=== PATIENT | male | born 1945 | race Caucasian/White ===

== ENCOUNTER 2017-05-14 01:44 | Inpatient (IN) ==
[2017-05-14 03:30] VITALS: BMI 34.1
[2017-05-14] MEDS ORDERED: ONDANSETRON 4 MG/2 ML INJECTION IVP PRN (04:00)
--- NOTE | 2017-05-14 04:07 | History & Physical Report ---
History of Present Illness Date: 05/14/17 Chief complaint: bright red blood per rectum HPI: 71 yo M with PMH of HTN presented to the ED with reports of bright red blood per rectum that started tonight at 22:00. Patient reports large voluminous bloody stools that came on urgently. The were painless and he denies abdominal cramping. He denies HX of blood stools in the past, he reports 3 episodes before he presented to the ED at [place], then he had one witnessed event in the ED. H/H was WNL. His last colonscopy was in 2015, it was normal at that time. Patient transferred to [facility] for further evaluation as [facility] did not have a surgeon or GI doctor this week. Review of Systems All systems PM: 10-point ROS was reviewed, no additional remarkable complaints except Past Medical History Patient Stated Medical History Cataracts Yes Dental Problems Yes: false teeth Glaucoma Yes Hypertension Yes Gastroesophageal Reflux Yes Disease Hx Kidney Stones Yes Osteoarthritis Yes Family History Updates: non contributory - Social History Smoking status: Former smoker Medications Home Medications Medication Instructions Recorded Confirmed Type Gabapentin 300 mg PO AM 05/14/17 05/14/17 History Gabapentin [Neurontin] 1 cap PO HS 05/14/17 05/14/17 History Allergies Allergy/AdvReac Type Severity Reaction Status Date / Time No Known Allergies Allergy Verified 05/14/17 03:10 Exam Vital Signs: Temperature 97.9 F 05/14/17 03:10 Pulse Rate 92 05/14/17 03:10 Respiratory Rate 16 05/14/17 03:10 Blood Pressure 154/85 H 05/14/17 03:10 Pulse Oximetry 95 05/14/17 03:10 Height/Weight/BMI: Height 1.78 m Weight 107.9 kg Body Mass Index 34.1 - Constitutional Present: well nourished, well developed - Routine Respiratory Exam Present: CTA bilaterally. Absent: wheezes - Routine Cardiovascular Exam Present: RRR. Absent: murmur - Routine Abdominal Exam Present: soft, normoactive bowel sounds, non distended. Absent: tenderness - Routine Extremities Exam Present: normal capillary refill - Routine Skin Exam Present: dry, warm - Routine Neurological Exam Present: alert, oriented X3, CN II-XII intact - Routine Psychiatric Exam Present: normal affect Assessment and Plan (1) GI bleed Current visit: Yes Status: Acute Assessment and Plan: Patient admitted. CBC, BMP ordered. Patient NPO until gen surg see in AM. Patient hemodynamically stable at this time. Protonix 40mg IV BID ordered. DVT Prophylaxis: SCD's GI Prophylaxis: Protonix Resuscitation Status: Full Code - Physician Narrative Narrative: Date: 05/14/17 Time: 402 Hospital Course Summary Disclaimer: The visit summary below is not to be considered part of the above Progress Note.
[2017-05-14] MEDS: PANTOPRAZOLE 40 MG INJECTION IVP SCH ×2 (04:43→21:07)
[2017-05-14] MEDS: LR 1,000 ML IV SCH ×2 (04:44→14:48)
--- NOTE | 2017-05-14 08:45 | General Surgery Consult Note ---
Consult date: 05/14/17 Attending Physician: Sanna Pino MD Reason for consult: other (redtal bleeding) [facility] Patient Stated Medical History Cataracts Glaucoma Hypertension GERD Kidney Stones BPH Hypothyroidism Arthritis Hypercholesterolemia Borderline DM Surgical History: -colonoscopy 04/05/2006 Tubular adenoma of rectum. - colonoscopy 03/11/2009 with hperplastic polyp. -colonoscopy 03/16/2015 with hyperplastic polyp and "very large numerous diverticula" Dr. Elizondo at [facility]. -EGD unknown date given ABX for 10 days and PPI. -Left knee scope meniscal tear repair Family History: Father - of emphysema, pneumonia Mother- age 61 Alzheimer's Brother age 53 "massive [place]" Denies F/H colon cancer - Social History Smoking status: Former smoker (quit 1989) Alcohol intake frequency: does not drink Housing: house Household members: other () Current occupational status: retired (from [employer]) Medications Home Medications Medication Instructions Recorded Confirmed Type Cinnamon Bark [Cinnamon] 1,000 mg PO DAILY 05/14/17 05/14/17 History Docusate Sodium 100 mg PO PRN 05/14/17 05/14/17 History Levothyroxine Sodium 150 mcg PO DAILY 05/14/17 05/14/17 History Lisinopril [Prinivil] 10 mg PO DAILY 05/14/17 05/14/17 History Loratadine 10 mg PO DAILY 05/14/17 05/14/17 History Meloxicam 15 mg PO DAILY 05/14/17 05/14/17 History Multi-Vitamin + Mineral 1 tab PO DAILY 05/14/17 05/14/17 History [Therapeutic - M] Keeler-3 Fatty Acids [Keeler-3] 1,200 mg PO DAILY 05/14/17 05/14/17 History Pantoprazole Sodium [Protonix] 40 mg PO DAILY 05/14/17 05/14/17 History Tramadol [Ultram] 50 mg PO PRN 05/14/17 History Allergies Allergy/AdvReac Type Severity Reaction Status Date / Time No Known Allergies Allergy Verified 05/14/17 03:10 Review of Systems 10-point ROS: negative except for HPI and the following: - Eyes/Ears/Nose/Throat Eyes: Present: vision problems (wears glasses) - Gastrointestinal Gastrointestinal: Present: blood in stools - Musculoskeletal Musculoskeletal: Present: joint pain - Neurological Neurological: Present: other (Feels like his skin "crawls" or "there are tiny little bugs biting". This sensation has not been present since admission to [facility] and is not pressent today.) - Endocrine Endocrine: Present: thyroid problems - Vital Signs Last Vital Signs Temp 97.9 F 05/14/17 08:14 Pulse 84 05/14/17 08:14 Resp 18 05/14/17 08:14 BP 134/83 05/14/17 08:14 Pulse Ox 92 05/14/17 08:14 - Laboratory Result Diagrams: 05/14/17 04:16 05/14/17 04:16 General Surgery Results - Results Labs: 05/14/17 04:16 05/14/17 04:16 Hospital Course Summary Disclaimer: The visit summary below is not to be considered part of the above Progress Note.
[2017-05-14] MEDS ORDERED: TETANUS, DIPHTHERIA, a PERTUSSIS (Tdap) 0.5ml INJECTION IM ONE (10:52)
[2017-05-14] MEDS ORDERED: Bisacodyl EC TAB 5 MG TABLET PO ONE (12:10)
[2017-05-14] MEDS ORDERED: Tdap VACCINE ADMINISTR CHARGE INJ ONE (14:00)
[2017-05-14] MEDS ORDERED: POLYETHYL. GLYCOL 3350 BOTTLE 238 GM PO ONE (14:30)
--- NOTE | 2017-05-14 16:03 | Consultation ---
DATE OF CONSULTATION 05/14/2017 FINDINGS Mr. Duran is a 71-year-old gentleman whom I was asked to see today as a new patient as a result of his history for rectal bleeding. Patient states that yesterday he was sitting around and watching some TV and had developed the urge to have a bowel movement. Patient states that he went to the bathroom and had passed a considerable amount of bright red blood per rectum. Patient states that he had two further episodes of rectal bleeding. He understandably became concerned and presented to [facility] emergency room for further evaluation. [facility] did not have a general surgeon or GI physician available and the patient was transferred to our facility for further care. The patient denies prior history for rectal bleeding. He says that he had a colonoscopy about two years ago that was normal with the exception of some diverticula. The patient denied prior history for peptic ulcer disease. He denied any history for significant nonsteroidal use. Denies alcohol use. Patient states that he has not drank alcohol since 1965. The patient did not have any element of abdominal pain in conjunction with his rectal bleeding. He was therefore without any type of specific aggravating or alleviating symptomatology. PAST MEDICAL HISTORY Performed by my nurse practitioner, Jose Luis Esparza. PAST SURGICAL HISTORY Performed by my nurse practitioner, Jose Luis Esparza. MEDICATIONS Performed by my nurse practitionerJose Luis. ALLERGIES Performed by my nurse practitionerJose Luis. SOCIAL HISTORY Performed by my nurse practitionerJose Luis. FAMILY HISTORY Performed by my nurse practitioner, Jose Luis Esparza. REVIEW OF SYSTEMS Performed by my nurse practitionerJose Luis. PHYSICAL EXAMINATION GENERAL: Mr. Duran is a 71-year-old gentleman who today did not appear to be in acute distress. VITALS: Temperature 97.9. Pulse 84. Respirations 18. Blood pressure 134/83. SaO2 92% on room air. HEENT: Normocephalic. Pupils are equally round and react to light and accommodation. NECK: Supple without lymphadenopathy. CHEST: Clear to auscultation bilaterally. HEART: Regular rate and rhythm. Normal S1, S2, without gallops, murmurs or clicks. ABDOMEN: Palpation of the abdomen reveals it to be soft and nontender. I do not appreciate any evidence for hepatosplenomegaly nor abnormal masses. EXTREMITIES: Without clubbing, cyanosis, or edema. NEURO: Cranial nerves II-XII grossly intact. Patient without focal, motor, or sensory deficits. LABORATORY/RADIOGRAPHIC EVALUATION The patient had a CBC today and his white count was normal at 5.7. Hemoglobin was slightly low at 12.8. CMP was obtained and found to be essentially within normal limits. Glucose was minimally elevated at 136. ASSESSMENT 71-year-old gentleman with onset of hematochezia. Most likely underlying etiology is that of a diverticular bleed. PLAN I did inform the patient that I felt that we had a few options available to us. I informed the patient that I have had a few patients over the last 20 years who have had a duodenal ulcer that bled briskly enough that they did present with bright red blood per rectum. I informed the patient that one could make an argument for going ahead and proceeding with both an EGD as well as a colonoscopy for further evaluation of his recent onset of rectal bleeding. I informed the patient that another option would be to treat him empirically as if he has peptic ulcer disease and keep him on medical therapy for suspected peptic ulcer disease over the course of the next month and given the fact that he had a normal colonoscopy two years ago, not proceed with endoscopic evaluation of his rectal bleeding. Pros and cons of these options were discussed with the patient. I also discussed the potential risks associated with endoscopy which included, but was not inclusive of, bleeding and/or perforation requiring surgery. After a moderate amount of discussion, the patient concluded that he would like to proceed with EGD and colonoscopy. We will proceed with bowel prep today in preparation for endoscopy tomorrow. I have reviewed orders and agree with current empiric treatment for suspected peptic ulcer disease. The patient is on Protonix 40 mg IV b.i.d. MTDD
[2017-05-14] MEDS: LEVOTHYROXINE 150 MCG TABLET PO SCH (16:42)
[2017-05-14] MEDS: LORATADINE 10 MG TABLET PO SCH (16:43)
[2017-05-14] MEDS: LISINOPRIL 10 MG TABLET PO SCH (16:43)
[2017-05-14] MEDS ORDERED: DEXTROMETHORPHAN 30 MG/5 ML ORAL LIQUID PO PRN (16:55)
[2017-05-15] MEDS: LR 1,000 ML IV SCH ×3 (01:52→22:47)
[2017-05-15] MEDS ORDERED: LIDOCAINE VISCOUS 2% ORAL LIQUID 15ml ONE (06:30)
[2017-05-15] MEDS: LEVOTHYROXINE 150 MCG TABLET PO SCH (06:45)
--- NOTE | 2017-05-15 07:41 | General Surgery Progress Note ---
Subjective Patient reports: blood in stool (Bowel prep was initially clear yellow per nurse , then turned bloody about 3am. He has had 2 additional smaller bloody stool since then. Denies nausea, dizziness, light headedness. ) Narrative: He had 50 ml water about 6:30 this morning. He is now in isolation for RSV. - Vital Signs Last Vital Signs Temp 97.7 F 05/15/17 03:19 Pulse 80 05/15/17 03:19 Resp 18 05/15/17 03:19 BP 141/90 H 05/15/17 03:19 Pulse Ox 94 05/15/17 03:19 - Laboratory Result Diagrams: 05/15/17 04:06 05/15/17 04:06 - Normal Exam General: awake, alert, oriented, no acute distress Respiratory: no labored breathing Psychiatric: normal affect Assessment and Plan (1) GI bleed Current Visit: Yes Status: Suspected Qualifiers: GI bleed type/associated pathology: diverticulosis Qualified Code(s): K57.91 - Diverticulosis of intestine, part unspecified, without perforation or abscess with bleeding Plan: Will keep him NPO and plan EGD colonoscopy late morning today. Anesthesia (Carlos Mckoy) indicated Lisinopril should be held. Hospital Course Summary Disclaimer: The visit summary below is not to be considered part of the above Progress Note.
[2017-05-15] MEDS: PANTOPRAZOLE 40 MG INJECTION IVP SCH ×2 (08:11→20:14)
--- NOTE | 2017-05-15 08:42 | Progress Note ---
- Date 05/15/17 Subjective: Pt was seen by me at 8:30 am in his room. He reports he had several stools with BRB related to his bowel prep during the night. He does not recall seeing any clots associated with the blood. He is scheduled for his colonoscopy/EGD this am. He denies any lightheadedness, SOB or chest pain. He reports his cough is the same-he did not realize he had cough medicine he could request. His sore throat is better. He remains afebrile. Objective Vital signs: Temperature 97.7 F 05/15/17 03:19 Pulse Rate 80 05/15/17 03:19 Respiratory Rate 18 05/15/17 03:19 Blood Pressure 141/90 H 05/15/17 03:19 Pulse Oximetry 94 05/15/17 03:19 In general, the patient is alert and oriented 3, cooperative with exam, and in no respiratory distress. HEENT: Head is atraumatic, normocephalic, no conjunctival petechiae, no oral thrush, mucous membranes are moist and pink. Lungs: Clear to auscultation without wheezes, crackles or rhonchi CV: Regular rate and rhythm without murmur Abdomen: Soft, nontender, bowel sounds are present, there is no guarding no rebound, slightly tender in left midquadrant with palpation Extremities: No clubbing, no cyanosis, no edema. Skin: Warm and dry no sign of rash Neuro: Patient is alert Height/Weight/BMI: Height 5 ft 10 in Weight 237 lb 14.06 oz Body Mass Index 34.1 Results - Labs CBC & Chem 7: 05/15/17 04:06 05/15/17 04:06 Labs: Laboratory Tests 05/14/17 12:22 Entero/Rhino (PCR) Detected A* Assessment and Plan (1) GI bleed Current visit: Yes Status: Suspected Assessment and Plan: Acute GI bleed with continued blood loss- hemoglobin stable History of polyps and diverticuli URI secondary to rhinovirus/enterovirus Hypertension Hypokalemia- resolved Plan Colonoscopy and EGD scheduled for today Monitor hemoglobin Continue protonix for now Lisinopril on hold secondary to anesthesia request Monitor BP Cough syrup available for cough secondary to rhinovirus/enterovirus DVT Prophylaxis: SCD's GI Prophylaxis: Protonix Resuscitation Status: Full Code - Physician Narrative Narrative: Date: 05/15/17 Time: 0838 Hospital Course Summary Disclaimer: The visit summary below is not to be considered part of the above Progress Note. 05/15/17 Acute GI bleed with continued blood loss- hemoglobin stable History of polyps and diverticuli URI secondary to rhinovirus/enterovirus Hypertension Hypokalemia- resolved Plan Colonoscopy and EGD scheduled for today Monitor hemoglobin Continue protonix for now Lisinopril on hold secondary to anesthesia request Monitor BP Cough syrup available for cough secondary to rhinovirus/enterovirus
--- NOTE | 2017-05-15 09:28 | Anesthesia Postoperative Note ---
- Date and Time Date: 05/15/17 Time: 09:28 - Status Patient Participated in Evaluation: Patient Participated in Person Vital Signs: Temperature 97.2 F 05/15/17 08:57 Pulse Rate 83 05/15/17 08:57 Respiratory Rate 16 05/15/17 08:57 Blood Pressure 137/83 05/15/17 08:57 Pulse Oximetry 92 05/15/17 08:57 Respiratory Function: Airway Patent Cardiovascular Function: Regular Pulse EKG: Sinus Rhythm EKG Ectopy: Bundle Branch Block Mental Status: Alert and Oriented Pain Intensity: 0 Hydration: IV Infusing Complications During Recover: None Apparent - Follow-Up Instructions Instructions: Per Surgeon
[2017-05-15] MEDS: LORATADINE 10 MG TABLET PO SCH (09:51)
[2017-05-15] MEDS: MULTI-VITAMIN + MINERAL TABLET PO SCH (09:51)
--- NOTE | 2017-05-15 09:51 | Anesthesia Preoperative Report ---
Anesthesia Preoperative Record - Date and Time Date: 05/15/17 Preoperative Diagnosis: GI bleed Proposed Procedure: colonoscopy/egd NPO Since Date: 05/15/17 NPO Since Time: 06:00 (h20 sips no solids since mn) Allergies/Adverse Reactions: Allergies Allergy/AdvReac Type Severity Reaction Status Date / Time No Known Allergies Allergy Verified 05/14/17 03:10 - Vital Signs Vital Signs: Temperature 97.2 F 05/15/17 08:57 Pulse Rate 83 05/15/17 08:57 Respiratory Rate 16 05/15/17 08:57 Blood Pressure 137/83 05/15/17 08:57 Pulse Oximetry 92 05/15/17 08:57 Height and Weight: Height 1.78 m Weight 103.5 kg Body Mass Index 34.1 - Medications Inpatient Medications: Current Medications Dextromethorphan Polistirix (Delsym Ext-Release) 60 mg PO Q12H PRN PRN Reason: Cough Lactated Ringer's (Lactated Ringers) 1,000 mls @ 100 mls/hr IV .Q10H [facility] Last Admin: 05/15/17 01:52 Dose: 100 mls/hr Levothyroxine Sodium (Synthroid) 150 mcg PO ACB [facility] Last Admin: 05/15/17 06:45 Dose: Not Given Lisinopril (Prinivil) 10 mg PO DAILY [facility] Last Admin: 05/14/17 16:43 Dose: 10 mg Loratadine (Claritin) 10 mg PO DAILY [facility] Last Admin: 05/14/17 16:43 Dose: 10 mg Multivitamins/Minerals (Therapeutic - M) 1 tab PO DAILY [facility] Ondansetron HCl (Zofran) 4 mg IVP Q6H PRN PRN Reason: Nausea &/or vomiting Pantoprazole Sodium (Protonix Iv) 40 mg IVP BID [facility] Last Admin: 05/15/17 08:11 Dose: 40 mg Home Medications: Home Medications Medication Instructions Recorded Confirmed Type Cinnamon Bark [Cinnamon] 1,000 mg PO DAILY 05/14/17 05/14/17 History Docusate Sodium 100 mg PO PRN 05/14/17 05/14/17 History Levothyroxine Sodium 150 mcg PO DAILY 05/14/17 05/14/17 History Lisinopril [Prinivil] 10 mg PO DAILY 05/14/17 05/14/17 History Loratadine 10 mg PO DAILY 05/14/17 05/14/17 History Meloxicam 15 mg PO DAILY 05/14/17 05/14/17 History Multi-Vitamin + Mineral 1 tab PO DAILY 05/14/17 05/14/17 History [Therapeutic - M] Dinosaur-3 Fatty Acids [Dinosaur-3] 1,200 mg PO DAILY 05/14/17 05/14/17 History Pantoprazole Sodium [Protonix] 40 mg PO DAILY 05/14/17 05/14/17 History Tramadol [Ultram] 50 mg PO PRN 05/14/17 History - Medical History Cardiovascular: Reports: Hypertension, High Cholesterol Gastrointestional: Reports: Gastroesophageal Reflux Disease Renal/Endocrine: Reports: Thyroid Disease - Surgical History GI Surgery/Treatments: Reports: Colonoscopy, EGD Anesthesia Reactions: None Hx Family Anesthesia Reaction: No History of Motion Sickness: No - Social History Smoking Status: Former smoker (quit 1989) Alcohol Intake Frequency: does not drink - Pertinent Findings Laboratory: CBC and BMP 05/15/17 04:06 05/15/17 04:06 BMP 05/15/17 04:06 Sodium 144 Potassium 3.8 Chloride 105 Carbon Dioxide 28 BUN 11.0 Creatinine 0.7 L Glucose 148 H Calcium 9.4 EKG: Sinus Rhythm - Physical Exam Respiratory Exam: Present: lungs clear, bilateral breath sounds equal Cardiovascular Exam: Present: regular rate and rhythm, no murmur - Airway Assessment Mallampati Score: I TMD: 3 Fingerbreadths Neck Extension: good Teeth: upper dentures, lower dentures Overall Assessment: no airway concerns - ASA ASA Score: 3 - Plan Anesthesia: General TIVA - Discussion Discussion: Discussed risks/options/alternatives of anesthesia and questions answered. Patient consents. Nursing pain assessment noted. Attestation Statement: Prior to the delivery of any anesthetic medication, I examined the patient, developed the plan, obtained the patient's consent and discussed the risk and benefits of the procedure with the patient/guardian. - Additional Information Seen by Anesthesia: Yes
[2017-05-15] MEDS ORDERED: PROPOFOL 500 MG/50 ML VIAL ONE (11:16)
[2017-05-15] MEDS ORDERED: PROPOFOL 20 ML ONE (11:47)
--- NOTE | 2017-05-15 11:58 | Procedure Note ---
- Procedure Date/Time: Date: 05/15/17 Time: 1156 Surgeon: Maya ASA Score: 3 Proceure: Colonoscopy-forceps polypectomy, EGD-polypectomy w/forceps - Postoperative Colonoscopy Diagnosis Diverticulosis (with bleeding) Polyps at (cm): 25 cm - Postoperative EGD Diagnosis Postoperative EGD Diagnosis: Hiatal hernia, Other (gastric polyp, Esophageal varices) - Complications Complications: None Estimated Blood Loss: See Anesthesia Record. Vital Signs: See Anesthesia and PACU record.
--- NOTE | 2017-05-15 12:19 | Anesthesia Postoperative Note ---
- Date and Time Date: 05/15/17 Time: 12:17 - Status Patient Participated in Evaluation: Patient Participated in Person Vital Signs: Temperature 97.2 F 05/15/17 08:57 Pulse Rate 88 05/15/17 11:55 Respiratory Rate 11 05/15/17 11:55 Blood Pressure 76/44 05/15/17 11:55 Pulse Oximetry 95 05/15/17 11:55 Respiratory Function: Airway Patent, Regular Respirations Cardiovascular Function: Regular Pulse Mental Status: Alert and Oriented Pain Intensity: 0 Hydration: IV Infusing Complications During Recover: None Apparent - Follow-Up Instructions Instructions: Per Surgeon
--- NOTE | 2017-05-15 16:05 | Operative Note ---
DATE OF SERVICE 05/15/2017 SURGEON Sai Trejo MD PREOPERATIVE DIAGNOSIS Rectal bleeding. POSTOPERATIVE DIAGNOSIS Rectal bleeding, minimal/moderate esophageal varices, hiatal hernia, gastric polyp, colonic polyp at 25 cm from the anal verge, sigmoid diverticulosis, probable diverticular bleed. PROCEDURE Esophagogastroduodenoscopy with gastric polypectomy via cold biopsy technique, colonoscopy with snare polypectomy technique at 25 cm from the anal verge. ANESTHESIA TIVA BRIEF HISTORY/INDICATIONS Mr. Duran is a 71-year-old gentleman who presented to our facility recently as a result of his history for rectal bleeding. It was recommended that the patient undergo bidirectional endoscopy for further evaluation. For completeness please refer to notes included in the patient's chart. FINDINGS Upon upper endoscopy, the patient was found to have fairly prominent submucosal venous structures indicative of a component of esophageal varices. There was no evidence for recent bleeding or ulceration of the varices. The patient was found to have a 6-7 cm hiatal hernia. Additionally the patient was found to have a polyp-like structure within the antrum of the stomach that was on the order of about 6 mm in diameter and removed in its entirety via cold biopsy technique. Duodenum without noted abnormalities. No evidence for old blood was present involving the upper intestinal tract. Upon colonoscopy, the patient was found to have a 8 mm polyp at 20 cm from the anal verge that was removed in its entirety via snare polypectomy technique. The patient was found to have a considerable amount of clotted blood within the sigmoid colon region adjacent to multiple diverticula. A specific bleeding diverticulum, however, was unable to be identified. There was no evidence for angiodysplastic lesions or justice malignancies. DESCRIPTION OF PROCEDURE After informed consent was obtained, patient was brought to the endoscopy suite and placed on the table in left lateral decubitus position. The patient subsequently underwent total intravenous anesthesia by the nurse intermediate manager per my request. Formal time-out was then completed. Next an Olympus gastroscope was inserted in the oral hypopharynx and subsequently the esophagus under direct visualization. Gastroscope was advanced through the esophagus, stomach, pylorus, duodenal bulb, to the second portion of the duodenum. First and second portions of the duodenum were within normal limits. No evidence of duodenitis or ulcerations were noted. Scope was withdrawn back to the prepyloric region. Within the prepyloric region/antrum, the patient was found to have a polyp-like structure that was on the order of about 5-6 mm in diameter. This polyp was grasped and removed in its entirety via cold biopsy technique. A J-maneuver was then performed. Cardia and fundus were within normal limits with the exception the patient was found to have a moderate-sized hiatal hernia. Scope was allowed to straighten and slowly withdrawn. The remaining corpus of the stomach was well visualized and again without noted abnormalities. Scope was withdrawn back to the level of the squamocolumnar junction which was about 6 cm above the level of the diaphragm. Squamocolumnar junction was well demarcated with no endoscopic evidence for Lees's metaplasia or distal esophagus, distal esophagitis. Scope was then slowly withdrawn. One could see fairly prominent submucosal venous structures present. Several photos were obtained for documentation purposes. Scope was then continued to be slowly withdrawn and no additional mucosal abnormalities were noted within the esophagus. Scope was removed from the patient's oral hypopharynx. Next attention was directed towards performing colonoscopy. First a digital rectal examination was performed. Normal sphincter tone. No rectal masses were appreciated. An Olympus colonoscope was inserted into the anus/rectal vault. One could see some old blood within the rectum. Scope was then advanced up to about 25 cm from the anal verge where an 8 mm polyp was identified. Snare was placed around the polyp and the polyp was transected and suctioned into a colonic trap to be submitted for pathologic evaluation. Scope was then continued be advanced. There was a fair amount of old clot present within the sigmoid colon region. Numerous diverticula were noted as well. An active bleeding diverticulum, however, was not able to be identified. Colonoscope was then continued to be advanced until the cecum was ascertained. Triangulation of the teniae coli, ileocecal valve and appendiceal lumen were all visualized. Scope was then slowly withdrawn again maintaining visualization of the lumen at all times. No additional/synchronous colonic polyps were noted. No angiodysplastic lesions were noted as well. Colonoscope was continued to be withdrawn until it was brought forth back to the rectal vault. A J-maneuver was then performed. No worrisome perianal pathology was noted. Scope was allowed to straighten and withdrawn through the anal verge. The patient tolerated the procedure without difficulty and was sent back to the preop area in stable condition. It is my intuition that the patient's recent rectal bleeding was diverticular in its etiology. We will await the pathology report from this polypectomy and proceed accordingly with further recommendations thereafter. Will go ahead and type and screen patient and continue to follow patient from a clinical standpoint in regards to his diverticular bleeding. We may wish to proceed with CT scan for further evaluation of his minimal esophageal varices noted to see if there is radiographic evidence for portal hypertension/cirrhosis. ALEXIA
[2017-05-16] MEDS ORDERED: IOHEXOL 300mg/ml 100ml INJECTION ONE (00:45)
[2017-05-16] MEDS ORDERED: SALINE FLUSH 10ml SYRINGE ONE (00:45)
[2017-05-16] MEDS: LEVOTHYROXINE 150 MCG TABLET PO SCH (05:47)
--- NOTE | 2017-05-16 08:48 | Progress Note ---
- Date 05/16/17 Subjective: The patient was seen at 8:35 AM sitting up in bed. He is eating a clear liquid breakfast. He is scheduled for CT scan of the abdomen and pelvis. He continues to be passing blood with his stools. This morning it appears to be more dark blood with very little stool. He denies any lightheadedness, he overall feels pretty good. He has minimal cough. He has not required any cough medicine. Objective Vital signs: Temperature 98.0 F 05/16/17 07:07 Pulse Rate 85 05/16/17 07:07 Respiratory Rate 16 05/16/17 07:07 Blood Pressure 130/78 05/16/17 07:07 Pulse Oximetry 94 05/16/17 07:07 In general, the patient is alert and oriented 3, cooperative with exam, and in no respiratory distress. HEENT: Head is atraumatic, normocephalic mucous membranes are moist and pink. Lungs: Clear to auscultation without wheezes, crackles or rhonchi CV: Regular rate and rhythm without murmur Abdomen: Soft, nontender, bowel sounds are present Extremities: No clubbing, no cyanosis, no edema. Skin: Warm and dry no sign of rash Neuro: Patient is alert Height/Weight/BMI: Height 5 ft 10 in Weight 229 lb 4.492 oz Body Mass Index 34.1 Results - Labs CBC & Chem 7: 05/16/17 04:19 05/16/17 04:19 Labs: Laboratory Tests 05/14/17 05/15/17 05/16/17 04:16 04:06 04:19 Eos % (Auto) 5.5 H 5.6 H 4.9 H Eos # (Auto) 0.3 0.3 0.3 Assessment and Plan (1) GI bleed Current visit: Yes Status: Suspected Assessment and Plan: Acute GI bleed secondary to diverticulosis with continued blood loss- hemoglobin slowly drifting downward S/p colonoscopy/ EGD with polypectomy Hiatal hernia Gastric polyp Esophageal varices (quit drinking in 1965) URI secondary to rhinovirus/enterovirus Hypertension Hypokalemia- resolved Mild increase percentage of eos, absolute number wnl Plan CT of abd/pelvis pending to evaluate etiology of esophageal varices Monitor hemoglobin Continue protonix will change to po Await pathology on polyps Cough syrup available for cough secondary to rhinovirus/enterovirus Will d/c IV fluids after this bag - Physician Narrative Narrative: Date: 05/16/17 Time: 0845 Hospital Course Summary Disclaimer: The visit summary below is not to be considered part of the above Progress Note. Hospital Course: Acute GI bleed with continued blood loss- hemoglobin stable History of polyps and diverticuli URI secondary to rhinovirus/enterovirus Hypertension Hypokalemia- resolved 05/15/17 Plan Colonoscopy and EGD scheduled for today Monitor hemoglobin Continue protonix for now Lisinopril on hold secondary to anesthesia request Monitor BP Cough syrup available for cough secondary to rhinovirus/enterovirus 05/16/17 Acute GI bleed secondary to diverticulosis with continued blood loss- hemoglobin slowly drifting downward S/p colonoscopy/ EGD with polypectomy Hiatal hernia Gastric polyp Esophageal varices (quit drinking in 1965) URI secondary to rhinovirus/enterovirus Hypertension Hypokalemia- resolved Mild increase percentage of eos, absolute number wnl Plan CT of abd/pelvis pending to evaluate etiology of esophageal varices Monitor hemoglobin Continue protonix will change to po Await pathology on polyps Cough syrup available for cough secondary to rhinovirus/enterovirus Will d/c IV fluids after this bag
[2017-05-16] MEDS: LISINOPRIL 10 MG TABLET PO SCH (08:51)
[2017-05-16] MEDS: MULTI-VITAMIN + MINERAL TABLET PO SCH (08:51)
[2017-05-16] MEDS: PANTOPRAZOLE 40 MG INJECTION IVP SCH (08:51)
[2017-05-16] MEDS: LORATADINE 10 MG TABLET PO SCH (08:51)
[2017-05-16] MEDS: PANTOPRAZOLE 40 MG TABLET PO SCH ×2 (09:14→16:33)
[2017-05-16] MEDS: LR 1,000 ML IV SCH (09:20)
--- NOTE | 2017-05-16 10:48 | CT Scan Report ---
Indication: evaluate for possible cirrhosis, portal HTN, PROCEDURE: CT abdomen pelvis w con: Encounter: Initial Comparison: None Technique: Axial CT images were performed through the abdomen and pelvis after the administration of intravenous contrast. Coronal and sagittal two-dimensional reformats. Automated Exposure Control and Iterative Reconstruction dose reducing techniques were utilized. Contrast: Omnipaque 300 100 mL Findings: 3 mm right lower lobe nodule on axial image #6. Linear scarring or atelectasis in the left lower lobe and lingula. The liver is fatty infiltrated diffusely. There is a slightly nodular contour externally. No enhancing liver lesion or mass. No bile duct dilatation. The gallbladder is normal. The spleen is normal. The pancreas is normal. The adrenal glands and kidneys are normal. Moderate sized hiatal hernia. Mildly enlarged left retroperitoneal node adjacent to the aorta on axial image #39 measuring 1.2 cm in short axis. Bladder is thin walled. Prostate is enlarged at up to 6 cm in diameter impressing upon the bladder base. Prominent stone at the right ureterovesicular junction on axial image #82 measuring 6 mm in size. There is an additional large 1.7 cm stone region at the left ureterovesicular junction that could be within the distal ureter. Additional pelvic phleboliths are noted. No free fluid. Moderate to severe sigmoid diverticulosis without evidence of acute diverticulitis. Scattered left colonic diverticulosis as well. No evidence of a bowel obstruction. The appendix is normal. Bone windows show transitional anatomy with partial sacralization of the L5 vertebra on the left with degenerative change and scoliosis in the lumbar spine. Impression: 1. Hepatic steatosis and possible cirrhosis. No other CT findings to suggest portal hypertension however. 2. Large stones at the ureterovesicular junctions bilaterally do not appear to be causing any obstruction. Recommend urologic evaluation. 3. Enlarged prostate with borderline retroperitoneal adenopathy raising some concern for prostate cancer. Recommend correlation with physical exam and PSA testing as indicated. .
--- NOTE | 2017-05-16 11:22 | General Surgery Progress Note ---
Subjective Patient reports: tolerating liquids well (fulls), blood in stool (small bloody stool this morning, denies dizziness, light headedness) - Vital Signs Last Vital Signs Temp 98.0 F 05/16/17 07:07 Pulse 85 05/16/17 07:07 Resp 16 05/16/17 07:07 BP 130/78 05/16/17 07:07 Pulse Ox 94 05/16/17 07:07 - Laboratory Result Diagrams: 05/16/17 04:19 05/16/17 04:19 Laboratory Tests 05/14/17 05/14/17 05/15/17 04:16 10:48 04:06 Hgb 13.3 L 12.8 L 13.0 L 05/15/17 05/16/17 15:56 04:19 Hgb 12.1 L 11.6 L - Radiology CT Abd/Pelvis Impression: 1. Hepatic steatosis and possible cirrhosis. No other CT findings to suggest portal hypertension however. 2. Large stones at the ureterovesicular junctions bilaterally do not appear to be causing any obstruction. Recommend urologic evaluation. 3. Enlarged prostate with borderline retroperitoneal adenopathy raising some concern for prostate cancer. Recommend correlation with physical exam and PSA testing as indicated. - Normal Exam General: awake, alert, oriented Cardiovascular: regular rate Respiratory: no labored breathing Abdominal: soft Assessment and Plan (1) GI bleed Current Visit: Yes Status: Acute Qualifiers: GI bleed type/associated pathology: diverticulosis Qualified Code(s): K57.91 - Diverticulosis of intestine, part unspecified, without perforation or abscess with bleeding Plan: HGB has drifted down from 13.0 on admission to 11.6 today, not much of a drop for the volume of stool with blood in it, must have been mostly stool. Copy of CT report given to patient to give to his PCP and urologist. He had a urology apt this week, this has been pushed back a week. Will advance to regular diet for lunch and see how he does. Hospital Course Summary Disclaimer: The visit summary below is not to be considered part of the above Progress Note. Hospital Course: Acute GI bleed with continued blood loss- hemoglobin stable History of polyps and diverticuli URI secondary to rhinovirus/enterovirus Hypertension Hypokalemia- resolved 05/15/17 Plan Colonoscopy and EGD scheduled for today Monitor hemoglobin Continue protonix for now Lisinopril on hold secondary to anesthesia request Monitor BP Cough syrup available for cough secondary to rhinovirus/enterovirus 05/16/17 Acute GI bleed secondary to diverticulosis with continued blood loss- hemoglobin slowly drifting downward S/p colonoscopy/ EGD with polypectomy Hiatal hernia Gastric polyp Esophageal varices (quit drinking in 1965) URI secondary to rhinovirus/enterovirus Hypertension Hypokalemia- resolved Mild increase percentage of eos, absolute number wnl Plan CT of abd/pelvis pending to evaluate etiology of esophageal varices Monitor hemoglobin Continue protonix will change to po Await pathology on polyps Cough syrup available for cough secondary to rhinovirus/enterovirus Will d/c IV fluids after this bag
--- NOTE | 2017-05-16 12:40 | Progress Note ---
DATE 05/15/2017 FINDINGS Mr. Duran was seen this evening on rounds. He denied abdominal pain. He has had no further rectal bleeding. VITALS: Afebrile. Normotensive. Last recorded vitals: temperature 96.5, pulse 73, blood pressure 137/89, SaO2 93% on room air. CHEST: Clear to auscultation bilaterally. HEART: Regular rate and rhythm. Normal S1 and S2 without gallops, murmurs or clicks. ABDOMEN: Palpation of the abdomen reveals it to be soft and nontender. I do not appreciate any evidence for hepatosplenomegaly or abnormal masses. LABORATORY/RADIOGRAPH EVALUATION The patient had a CBC this afternoon and his hemoglobin is stable at 12.1. Earlier today his hemoglobin was 13.0. ASSESSMENT 71-year-old gentleman with presentation of rectal bleeding. Patient status post EGD and colonoscopy. EGD did reveal evidence for esophageal varices/ prominent submucosal venous structures. Findings suggestive of portal hypertension. Colonoscopy revealed probable diverticular bleed with a fair amount of old blood noted adjacent to numerous diverticula within the sigmoid colon region. Colonic polyp as well as gastric polyp noted and removed in their entirety endoscopically. PLAN Will go ahead and order a CT scan of abdomen and pelvis for further evaluation of his mild esophageal varices to further evaluate for possibility of portal hypertension or cirrhosis of liver. Will advance to full liquids. Will recheck hemoglobin tomorrow. I did spend some time this evening discussing endoscopic findings with the patient and proposed plan. I informed the patient that hopefully his diverticular bleed will resolve on its own behalf over the next 24 hours and he will be able to be discharged in the near future. All questions answered. [facility]
--- NOTE | 2017-05-16 18:40 | Progress Note ---
DATE OF SERVICE 05/16/2017 FINDINGS Mr. Duran was seen this evening on rounds. He states that he did have one stool today that was black in nature. He has not passed any further bright red blood per rectum. Denies abdominal pain. He has just begun to eat a regular diet. PHYSICAL EXAM VITAL SIGNS: Afebrile, normotensive. Please refer to EMR. Last recorded vitals include temperature 97.9, pulse 82, respirations 18, blood pressure 143/79, SAO2 92% on room air. HEENT: Normocephalic. Pupils are equally round and react to light and accommodation. CHEST: Clear to auscultation bilaterally. HEART: Regular rate and rhythm. Normal S1 and S2 without gallops, murmurs or clicks. ABDOMEN: Palpation of the abdomen reveals it to be soft with no tenderness. No evidence for guarding or rebound. LABORATORY/RADIOGRAPHIC EVALUATION The patient had a CBC today and his hemoglobin overall is stable at 11.6. It has decreased slightly from 12.1. White count stable at 6.1. BMP obtained and found be without marked abnormalities. The patient did have a CT scan of his abdomen and pelvis as a result of the prominence of the submucosal venous structures. CT scan did reveal an enlarged prostate with some associated adenopathy worrisome for possible prostate cancer. Patient has an appointment with Urology in the near future. PSA level was recommended. He also had a large stones noted within ureterovesicular junction bilaterally. These do not appear to be causing an element of obstruction. There was a component of hepatic steatosis, possible cirrhosis. No evidence, however, to suggest portal hypertension. The patient was informed of the CT scan findings. ASSESSMENT 71-year-old gentleman with a history for hematochezia, most likely diverticular in nature. Patient overall doing well. PLAN Will likely keep overnight tonight and recheck hemoglobin tomorrow. If hemoglobin remains stable and he has had no further rectal bleeding, will discharge at that time. I have not spoken with the hospitalist system today in regards to final plans. The patient's colonic polyp that was removed endoscopically yesterday returned as hyperplastic in nature. The polyp-like structure from within the stomach returned revealing a component of chronic gastritis with reactive mucosal atypia. No evidence for malignancy and/or dysplasia present. [facility]
[2017-05-16 20:02] VITALS: RESP 16
[2017-05-17] MEDS: LEVOTHYROXINE 150 MCG TABLET PO SCH (06:30)
[2017-05-17] MEDS: PANTOPRAZOLE 40 MG TABLET PO SCH (06:30)
[2017-05-17 08:03] VITALS: BP 125/73; PULSE 79; TEMP 97.2; O2SAT 92
[2017-05-17] MEDS: MULTI-VITAMIN + MINERAL TABLET PO SCH (08:47)
[2017-05-17] MEDS: LISINOPRIL 10 MG TABLET PO SCH (08:47)
[2017-05-17] MEDS: LORATADINE 10 MG TABLET PO SCH (08:47)
--- NOTE | 2017-05-17 10:44 | Discharge Summary ---
Discharge Information Date of admission: 05/15/17 13:56 Anticipated date of discharge: 05/17/17 Attending Physician: Sanna Pino MD Primary care physician: Dr Nazario Foss- [facility] Consults: Dr Sai Trejo- General surgeon - Discharge Diagnosis (1) GI bleed Status: Acute Acute GI bleed secondary to diverticulosis Anemia secondary to GI blood loss S/p colonoscopy/ EGD with polypectomy Hypokalemia-(POA) Hiatal hernia Gastric polyp Esophageal varices (quit drinking in 1965) URI secondary to rhinovirus/enterovirus Hypertension Renal calculi - Procedures Procedures: 05/15/17- Esophagogastroduodenoscopy with gastric polypectomy via cold biopsy technique, colonoscopy with snare polypectomy technique at 25 cm from the anal verge. Dr Trejo - Laboratory Labs: 05/17/17 04:14 05/16/17 04:19 - Microbiology None - Radiology Radiology: 05/16/17- Ct Abdomen and pelvis Impression: 1. Hepatic steatosis and possible cirrhosis. No other CT findings to suggest portal hypertension however. 2. Large stones at the ureterovesicular junctions bilaterally do not appear to be causing any obstruction. Recommend urologic evaluation. 3. Enlarged prostate with borderline retroperitoneal adenopathy raising some concern for prostate cancer. Recommend correlation with physical exam and PSA testing as indicated. - Pathology Pending History of Present Illness HPI: 71 yo M with PMH of HTN presented to the ED with reports of bright red blood per rectum that started tonight at 22:00. Patient reports large voluminous bloody stools that came on urgently. The were painless and he denies abdominal cramping. He denies HX of blood stools in the past, he reports 3 episodes before he presented to the ED at [place], then he had one witnessed event in the ED. H/H was WNL. His last colonscopy was in 2016, it was normal at that time. Patient transferred to [place] for further evaluation as [facility] did not have a surgeon or GI doctor this week. Objective Vital signs: Temperature 97.2 F 05/17/17 08:00 Pulse Rate 79 05/17/17 08:00 Respiratory Rate 16 05/17/17 08:00 Blood Pressure 125/73 05/17/17 08:00 Pulse Oximetry 92 05/17/17 08:00 Height/Weight/BMI: Height 1.78 m Weight 104.8 kg Body Mass Index 34.1 - Constitutional Present: no acute distress, well nourished, well developed - Routine HEENT Exam Eye: Present: EOMI ENT: Present: mucous membranes moist, dentition normal - Routine Respiratory Exam Present: CTA bilaterally. Absent: wheezes - Routine Cardiovascular Exam Present: RRR, S1, S2. Absent: murmur - Routine Abdominal Exam Present: soft, normoactive bowel sounds, non distended. Absent: tenderness - Routine Extremities Exam Present: full ROM, pulses intact - Routine Back/Spine/Pelvis Exam Back/Spine: Present: full ROM - Routine Skin Exam Present: intact, dry, warm - Routine Neurological Exam Present: alert, oriented X3, CN II-XII intact, moving all extremities - Routine Lymphatic Exam Lymphatic: Absent: adenopathy - Routine Psychiatric Exam Present: normal affect, cooperative Hospital Course This is a general summary of the patient's hospital course. For more details refer to the complete medical record. Hospital course: Acute GI bleed with continued blood loss- hemoglobin stable History of polyps and diverticuli URI secondary to rhinovirus/enterovirus Hypertension Hypokalemia- resolved 05/15/17 Plan Colonoscopy and EGD scheduled for today Monitor hemoglobin Continue protonix for now Lisinopril on hold secondary to anesthesia request Monitor BP Cough syrup available for cough secondary to rhinovirus/enterovirus 05/16/17 CT of abd/pelvis pending to evaluate etiology of esophageal varices Monitor hemoglobin Continue protonix will change to po Await pathology on polyps Cough syrup available for cough secondary to rhinovirus/enterovirus Will d/c IV fluids after this bag 05/17/17- Discharge Joaquin is seen and examined prior to discharge. He is up in the room and ambulating without difficulty. He has tolerated a full breakfast this morning without any abdominal pain, nausea or stools. He had one stool that was dark in color. Yesterday, however, has had nothing overnight. He feels stable and ready for discharge. We will send him on Protonix 40 BID for ongoing GI protection. It is recommended that he avoid his Mobic and other NSAIDS at this time. He is instructed to follow-up with his primary care provider Dr Nazario Foss in [place], [place] in 1 week and have a CBC to monitor anemia. He also discussed findings of multiple renal calculi on CT scan. Patient doesn' t have an appointment already to follow-up with urologist. It is recommended that he also discuss PSA level. Given findings of enlarged prostate. Otherwise Joaquin appears to be medically stable for discharge. Time spent with patient: discharge greater than 30 minutes Discharge Plan - Discharge Disposition Discharge Date: 05/14/17 Disposition: Discharged Home, Self-Care *Condition: Stable Reason For Visit (Visit label in EMR): GI bleed - Discharge Medications *Discharge Medications: New Pantoprazole Tab [Protonix Tab] 40 mg PO ACBID #30 tab Continue Tramadol [Ultram] 50 mg PO PRN PRN Reason: Pain Loratadine 10 mg PO DAILY Levothyroxine Sodium 150 mcg PO DAILY Lisinopril [Prinivil] 10 mg PO DAILY Meloxicam 15 mg PO DAILY [place]-3 Fatty Acids [[place]-3] 1,200 mg PO DAILY Multi-Vitamin + Mineral [Therapeutic - M] 1 tab PO DAILY Discontinued Cinnamon Bark [Cinnamon] 1,000 mg PO DAILY Pantoprazole Sodium [Protonix] 40 mg PO DAILY Docusate Sodium 100 mg PO PRN - Discharge Packet/Instructions *Diet: regular *Activity: Do not drive, operate machinery for 24 hours after surgery or while taking pain medication. *Pain Management/Treatment: Follow prescriptions as prescribed *Wound Care: None Additional Instructions: Take Protonix twice a day until follow up with PCP. No Meloxicam or other NSAIDS until seen by PCP. Follow up with PCP Dr Nazario Foss in 1 week. Will need lab- CBC at that time. Follow up with Urologist as recommended. Take radiology reports to discuss kidney stones and PSA is recommended given enlarged prostate. *Expected Signs/Symptoms: Continued improvement in symptoms *Notify Physician if: 1. Call your surgeon if you are having problems relating to your surgery at [phone]. 2. Problems such as: Temp above 101.5 degrees. You develop redness, excessive swelling of the incision, increasing pain or excessive foul smelling drainage. 3. If the office is closed, call [facility] at [phone] and have your Surgeon paged. *During Business Hours Contact: Call your surgeon at at [phone]. *After Business Hours Contact: If the office is closed, call [facility] at [phone] and have your Surgeon paged. *Pending Lab/Results: Follow up w/your PCP - Referrals/Follow Up *Referrals/Follow Up: Nazario Foss MD [Physician] - 05/24/17 10:00 am (will do CBC lab work at that time and will see Olga the nurse practitioner ) - Patient Handouts Patient Handouts: Diverticulitis (DC), Rectal Bleeding (DC), Colorectal Polyps (DC) - Dismissal Complete Discharge Instructions are:: Complete Physician Narrative - Narrative Physician: Fareed Matthew MD Attestation Narrative: Date: 05/17/17 Time: 1345 Have independently interviewed and examined pt. Chart reviewed. Case discussed with CM and my [employer]. Care plan developed with my supervision; agree with above. Doing well today. Denies ab pain or discomfort. Eating well. Stooling well-no pain or discomfort with bowel movement. Not feeling dizzy or unsteady with positional changes. Ambulating well. Feels up to going home. Lungs: clear bilaterally CV: regular AB: soft nt/nd +BS MSE: awake alert appropriate Plan: Medically stable for discharge to home. See orders for details.
--- NOTE | 2017-05-17 17:54 | Progress Note ---
DATE OF SERVICE 05/17/2017 FINDINGS Mr. Duran was seen earlier today on afternoon rounds. He states that he had no further bouts of significant rectal bleeding. He states that he still notices that his stools are somewhat dark in nature but has not had further bright red blood per rectum. Denied significant abdominal pain. PHYSICAL EXAM VITAL SIGNS: Temperature 97.2, pulse 79, respirations 16, blood pressure 125/73 , SAO2 92% room air. HEENT: Normocephalic. Pupils are equally round and react to light and accommodation. CHEST: Clear to auscultation bilaterally. HEART: Regular rate and rhythm. Normal S1 and S2 without gallops, murmurs or clicks. ABDOMEN: Palpation of the abdomen reveals it to be soft and completely nontender. No evidence for guarding or rebound. LABORATORY/RADIOGRAPHIC EVALUATION The patient had a CBC today and his hemoglobin is stable 11.2. White count was stable at 5.1. I informed the patient of his pathology report from his colonoscopy. Polyp within the stomach was benign in nature, showing evidence of a chronic gastritis and reactive mucosal atypia. No evidence for dysplasia or malignancy noted. Polyp within the colon was hyperplastic in nature. ASSESSMENT 71-year-old gentleman with recent probable diverticular bleed that has now resolved on its own behalf. Patient doing well. PLAN From a general surgical standpoint I informed the patient earlier today that I felt that he could be discharged. He is to follow up with me on an as-needed basis. I did inform the patient that he should follow up with his PCP and that his discharge summary and hospital records will be forwarded to his primary care physician. ALEXIA
== END 2017-05-17 14:03 | disposition home or self-care (01) | DRG 378 ==
LOC: SRG 03:06 → INTOOBSV 03:06 → SUATTDRO 03:06
PROVIDERS: ADMIT Internal Medicine; ATTEND Hospitalist
PROC: END.EGD (2017-05-15 09:05)